=== PATIENT | male | born 1960 | race African-American/Black ===

== ENCOUNTER 2019-12-31 11:45 | Outpatient (CLI) | payer BC ==
--- NOTE | 2019-12-31 12:05 | RAD ---
XR Chest Pa Lat STANDARD HISTORY: Cough and fever COMPARISON: 11/07/2004 study FINDINGS: Heart size is within normal limits there are atherosclerotic changes of aorta. The lungs ar e clear of infiltrates. 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 IMPRESSION: No focal infiltrative process.
== END 2019-12-31 11:46 | disposition home or self-care (01) ==
LOC: BICRAD 11:45
PROVIDERS: ATTEND Family Medicine
DX: J18.9 Pneumonia, unspecified organism (principal)
CPT/HCPCS: 71046

== ENCOUNTER 2020-04-07 09:35 | Outpatient (CLI) | payer BC, OTHER ==
[2020-04-07 14:34] LABS: Anion Gap 12 mmol/L (10-20); BUN (Urea Nitrogen) 16 mg/dL (8.4-25.7); Calc. Creatinine Clearance 0 mL/min (70-130); Calcium 9.5 mg/dL (7.8-10.44); Carbon Dioxide 21 mmol/L (22-29); Chloride 110 mmol/L (98-107); Estimated GFR-MDRD Greater than 90; Glucose 101 mg/dL (70-105); Potassium 4.1 mmol/L (3.5-5.1); Sodium 139 mmol/L (136-145)
[2020-04-07 14:36] LABS: #Basophils 0.1 thou/uL (0.0-0.2); #Eosinphils 0.1 thou/uL (0.0-0.7); #Lymphocytes 2.1 thou/uL (1.20-3.40); #Monocytes 0.6 thou/uL (0.11-0.59); #Neutrophils 5.4 thou/uL (1.40-6.50); %Basophils 0.7 % (0.0-1.0); %Eosinophils 1.7 % (0.0-10.0); %Lymphocytes 25.2 % (21.0-51.0); %Monocytes 7.6 % (0.0-10.0); %Neutrophils 64.8 % (42.0-75.0); Hemoglobin 14.4 g/dL (14.0-18.0); MDiff Complete? YES; Mean Corpuscular HGB CONC 31.6 g/dL (32.0-36.0); Mean Corpuscular Hemoglobin 23.5 pg (27.0-31.0); Mean Corpuscular Volume 74.5 fL (78.0-98.0); Microcytosis SLIGHT = 6-15 cells (100X) (0-5/hpf); Platelet Count 283 thou/uL (130-400); Platelet Morphology Comment Appears Adequate; RBC Distribution Width 13.4 % (11.5-14.5); Red Blood Cell (RBC) Count 6.13 mill/uL (4.70-6.10); White Blood Cell (WBC) Count 8.3 thou/uL (4.8-10.8)
[2020-04-08 11:37] LABS: SARS-CoV-2 MS2 Positive; SARS-CoV-2 N Gene Negative; SARS-CoV-2 S Gene Negative; SARS-CoV-2 orf1ab Negative
== END 2020-04-07 09:36 | disposition home or self-care (01) ==
LOC: LABBT 09:35
PROVIDERS: ATTEND Specialist
DX: Z01.812 Encounter for preprocedural laboratory examination (principal); Z11.59 Encounter for screening for other viral diseases; K40.90 Unilateral inguinal hernia, without obstruction or gangrene, not specified as recurrent
CPT/HCPCS: 80048; 85025; 87635; U0003

== ENCOUNTER 2020-04-11 06:34 | Day surgery (SDC) | payer BC ==
[2020-04-07 11:10] VITALS: BMI 24.3
[2020-04-11] MEDS ORDERED: Acetaminophen 500 MG TAB ONE (06:50)
[2020-04-11] MEDS ORDERED: Ketorolac Tromethamine 30 MG/ML VIAL ONE (06:50)
[2020-04-11] MEDS ORDERED: Lidocaine 1% w/Epinephrine 1:100K 20 ML VIAL ONE (08:40)
[2020-04-11] MEDS ORDERED: Bupivacaine PF 0.5% 30 ML VIAL ONE (08:40)
[2020-04-11] MEDS ORDERED: Bupivacaine 0.25% HCL 30 ML VIAL ONE (08:40)
[2020-04-11] MEDS ORDERED: Fentanyl 100 MCG/2 ML VIAL ONE (08:47)
[2020-04-11] MEDS ORDERED: HYDROmorphone 2 MG/ML VIAL ONE (09:46)
[2020-04-11] MEDS ORDERED: Lidocaine 1% PF 5 ML VIAL ONE (11:29)
[2020-04-11] MEDS ORDERED: Dexamethasone 20 MG/5 ML VIAL ONE (11:29)
[2020-04-11] MEDS ORDERED: Ondansetron PF 4 MG/2 ML Vial ONE (11:29)
[2020-04-11] MEDS ORDERED: Rocuronium Bromide 10 MG/ML (10ML VIAL) ONE (11:29)
[2020-04-11] MEDS ORDERED: PROPOFOL 200 MG/20 ML VIAL ONE (11:29)
--- NOTE | 2020-04-12 13:02 | OP ---
DATE OF PROCEDURE: 04/11/2020 PREOPERATIVE DIAGNOSIS: Large incarcerated right inguinal hernia. POSTOPERATIVE DIAGNOSES: Large incarcerated right inguinal hernia with finding of a large sliding right inguinal hernia. PROCEDURES PERFORMED: Right inguinal hernia repair with patch and plug, right orchiectomy, and On-Q pain pump. ANESTHESIA: General endotracheal. INDICATIONS: The patient is a 59-year-old thin black male. He has a huge right inguinal hernia that extends down to the scrotum and is easily visible through his clothing while he is . He is taken to the operative room at this time for repair. It was noted that the hernia was not reducible in the office. DESCRIPTION OF OPERATION: Informed consent was obtained. The patient was taken to the operating room, where general endotracheal anesthesia obtained with the patient in supine position. Abdomen, right groin, and scrotum were prepped with ChloraPrep and draped in sterile fashion. Local anesthetic was infiltrated using a mixture of 1% lidocaine with epinephrine and 0.25% Marcaine. An oblique right inguinal incision was created. Dissection was carried through skin and subcutaneous tissue. The dissection was carried down on to large hernia sac and on the lateral aspect, fibers of the external oblique aponeurosis were identified. These were opened parallel to the fibers so as to open the external ring. I carefully dissected the contents of the herniated material and the cord and encircled with a Shane drain. I began dissecting the contents of the cord and quickly end at the hernia sac. I thereafter opened the hernia sac further and attempted to reduce the hernia contents. There was substantial small bowel and this was all easily reducible. Unfortunately, I quickly found that the cecum comprised part of the wall of the hernia sac as is seen in a sliding hernia. I had significant difficulty reducing this in spite of numerous attempts. I spent a considerable amount of time. I attempted to dissect the cord structures and vessel off this chronic hernia sac. There was severe inflammation and adhesion between all structures within the cord secondary to extraordinarily long period of time that this hernia has been present. After a period of time, it became apparent that not only what I likely not be able to maintain the vascular integrity of the cord structures and therefore, the viability of the testicle, but I could not even really identify those structures separate from the hernia sac. I therefore decided that in order to appropriately identify and treat this hernia, an orchiectomy should be done. I carefully dissected the testicle out of the scrotum. I then identified the structures supplying the testicle and dissected these back along the hernia sac. These were serially clamped and divided, ligated with a 2-0 silk ties. The testicle and cord structures were then passed off the field. Once the cord structures were divided, I was able to turn my attention to the hernia sac and I began to dissect at the internal ring to be certain that I would be able to reduce the contents into the peritoneum and preperitoneal space. I closed the defect in the hernia sac with running suture of 2-0 Vicryl. I secured the apex of an extra-large mesh plug to the apex of the hernia sac and reduce the contents into the preperitoneal space. The mesh plug was then secured to the fascia in four quadrants using 2-0 Vicryl suture. Finally, I placed two imbricating sutures of 2-0 Vicryl over the top of the defect to keep the plug in the appropriate space. Mesh patch was obtained, placed within the floor of the inguinal canal, and secured in place with interrupted 2-0 Vicryl across superior aspect and a running suture of 2-0 Vicryl across the inferior aspect to the shelving edge of the inguinal ligament. An On-Q pain pump was then obtained and tunneled into the wound from a superior lateral aspect. It was flushed in position within the wound. The fascia was then closed with a running suture of 3-0 Vicryl. Subcutaneous tissue was closed with interrupted sutures of 3-0 Monocryl and the skin edges closed with 4-0 Monocryl. Dermabond was placed externally. The external pain pump connections were secured. An occlusive dressing was applied over the coiled pain pump. There were no complications. The patient tolerated the procedure well and was taken to recovery room in stable condition. Job ID: [id number]
== END 2020-04-11 13:20 | disposition home or self-care (01) ==
LOC: SDC 06:34
PROVIDERS: ATTEND Specialist
PROC: 0VT90ZZ Resection of Right Testis, Open Approach (ICD-10-PCS; principal; 2020-04-11)
PROC: 0YU50JZ Supplement Right Inguinal Region with Synthetic Substitute, Open Approach (ICD-10-PCS; principal; 2020-04-11)
DX: K40.30 Unilateral inguinal hernia, with obstruction, without gangrene, not specified as recurrent (principal); E11.9 Type 2 diabetes mellitus without complications; K21.9 Gastro-esophageal reflux disease without esophagitis; I10 Essential (primary) hypertension
CPT/HCPCS: 88305; C1781; J0690; J1100; J1170; J1885; J2001; J2405; J2704; J3010; S0020